=== PATIENT | female | born 1990 | race Caucasian/White ===

== ENCOUNTER 2022-03-17 12:26 | Emergency (ER) | payer OTHER ==
[2022-03-17 12:56] VITALS: BP 118/87; PULSE 78; RESP 18; TEMP 97.9; BMI 31.6
[2022-03-17] MEDS ORDERED: IBUPROFEN 600 MG TABLET (FP) PO ONE ×2 (13:27→13:28)
== END 2022-03-17 13:37 | disposition home or self-care (01) ==
LOC: FER 12:26
DX: S80.01XA Contusion of right knee, initial encounter (principal); W19.XXXA Unspecified fall, initial encounter
CPT/HCPCS: 73560-TC-RT-FY; 99283-25